=== PATIENT | male | born 1950 | race Caucasian/White ===

== ENCOUNTER 2018-02-20 05:02 | Day surgery (SDC) | payer MEDICARE ==
[2018-02-20] VITALS (10 sets, daily range): BP systolic 100–114; BP diastolic 47–74
[~2018-02-20] VITALS: Ht 180.3 cm; Wt 84.3 kg
[2018-02-20] MEDS ORDERED: VALS1TAB75 PO (05:45)
[2018-02-20] MEDS ORDERED: GLIP5TAB13 PO (05:45)
[2018-02-20] MEDS ORDERED: CLOP75TA15 PO (05:45)
[2018-02-20] MEDS ORDERED: HYDR60TA PO (05:45)
[2018-02-20] MEDS ORDERED: ATOR80TA PO (05:45)
[2018-02-20] MEDS ORDERED: METF1000 PO (05:45)
[2018-02-20] MEDS ORDERED: ASPI81TA46 PO (05:45)
[2018-02-20] MEDS ORDERED: HYDR-4353 PO (05:45)
[2018-02-20] MEDS ORDERED: OMEP20CA10 PO (05:45)
[2018-02-20] MEDS ORDERED: diphenhydrAMINE 25mg capsule PO ONE (05:50)
[2018-02-20] MEDS ORDERED: normal saline 1000ml 1,000 ML IV ONE (05:50)
[2018-02-20] MEDS ORDERED: LIDOcaine/PRILOcaine 5gm cream TP ONE (05:55)
[2018-02-20] MEDS ORDERED: LORazepam 0.5 MG tablet PO ONE (05:55)
[2018-02-20] MEDS ORDERED: verapamil 2.5 mg/ml inj IV ONE (06:14)
[2018-02-20] MEDS ORDERED: heparin 1,000unit/ml 10ml vial 10 ML ONE (06:14)
[2018-02-20] MEDS ORDERED: nitroGLYCERIN-Tridil 50MG/D5W 250 ML IV ONE (06:14)
[2018-02-20] MEDS ORDERED: iohexol 350MG/ML 100ml bottle IV ONE (06:15)
[2018-02-20] MEDS ORDERED: LIDOcaine 1% 30ml preserv. free vial ONE (06:15)
[2018-02-20] MEDS ORDERED: midazolam 2 mg/2 ml injection ONE (06:26)
[2018-02-20] MEDS ORDERED: fentaNYL/PF 50MCG/1 ML 2ML syringe ONE (06:26)
[2018-02-20] MEDS ORDERED: HYDROcodone/acetaminophen 10/325mg tab PO PRN (07:45)
[2018-02-20] MEDS ORDERED: proCHLORperazine 10 MG/2 ml inj IV PRN (07:45)
[2018-02-20] MEDS ORDERED: OXAZEpam 15mg capsule PO PRN (07:45)
[2018-02-20] MEDS ORDERED: HYDROcodone/acetaminophen 5mg/325mg tablet PO PRN (07:45)
[2018-02-20] MEDS ORDERED: ondansetron/PF 4mg/2ml inj IV PRN (07:45)
== END 2018-02-20 10:23 | disposition home or self-care (01) ==
LOC: SSTAY O 05:02
PROVIDERS: ATTEND Internal Medicine Interventional Cardiology
DX: I25.10 Atherosclerotic heart disease of native coronary artery without angina pectoris (principal); I10 Essential (primary) hypertension; E78.5 Hyperlipidemia, unspecified; I65.23 Occlusion and stenosis of bilateral carotid arteries; E11.9 Type 2 diabetes mellitus without complications; F17.210 Nicotine dependence, cigarettes, uncomplicated; K21.9 Gastro-esophageal reflux disease without esophagitis; F10.21 Alcohol dependence, in remission; Z79.891 Long term (current) use of opiate analgesic; Z88.0 Allergy status to penicillin; Z86.79 Personal history of other diseases of the circulatory system; Z79.84 Long term (current) use of oral hypoglycemic drugs; Z79.82 Long term (current) use of aspirin; Z79.01 Long term (current) use of anticoagulants; Z95.828 Presence of other vascular implants and grafts; Z79.899 Other long term (current) drug therapy; Z98.890 Other specified postprocedural states
CPT/HCPCS: 82948; 93005; 93458; 99152; 99153; A6257; A6402; A6449; C1769; J1644; J2250; J3010; J3490; J7030; Q0163; Q9967; A4620